=== PATIENT | male | born 1980 | race Caucasian/White ===

== ENCOUNTER 2022-01-20 14:24 | Emergency (ER) | payer OTHER ==
[~2022-01-20] VITALS: Ht 180.3 cm; Wt 104.3 kg
[2022-01-20] MEDS ORDERED: HYDROXYZINE HCL50 MG PO (14:51)
[2022-01-20] MEDS ORDERED: LISINOPRIL5 MG PO (14:51)
== END 2022-01-20 17:25 | disposition home or self-care (01) ==
LOC: ED 14:24
DX: K92.2 Gastrointestinal hemorrhage, unspecified (principal); R10.31 Right lower quadrant pain; I10 Essential (primary) hypertension; Z88.5 Allergy status to narcotic agent; Z91.038 Other insect allergy status; Z79.899 Other long term (current) drug therapy
CPT/HCPCS: 36415; 74177; 80053; 81001; 83690; 85025; 96376; 99285-25; J1170; J7030